=== PATIENT | female | born 1980 | race Caucasian/White ===

== ENCOUNTER 2023-02-01 16:30 | Emergency (ER) | payer MEDICAID ==
[~2023-02-01] VITALS: Ht 162.6 cm; Wt 75.7 kg
[2023-02-01 16:59] VITALS: BP 109/52; PULSE 89; RESP 17; TEMP 97.4; O2SAT 97
[2023-02-01] MEDS ORDERED: KETOROLAC 15 MG/ML VIAL IVP ONE (17:40)
[2023-02-01] MEDS ORDERED: NACL 0.9% 1,000 ML IV ONE (17:40)
--- NOTE | 2023-02-01 17:57 | NUR ---
LOW ABD PAIN, THAT RADIATES TO THE LOWER BACK, ONSET THIS MORNING. DENIES N/V. DOES ENDORSES PRIOR HX OF KIDNEY STONES.
--- NOTE | 2023-02-01 18:03 | NUR ---
Thi callahan in ED - 02/01/23 at 1935 by [id number] Pt has been medicated per providers orders.
[2023-02-01 18:06] LABS: BASOPHILS # (AUTO) 0.1 K/uL (0.00-0.22); BASOPHILS % (AUTO) 0.8 % (0.0-2.0); EOSINOPHILS # (AUTO) 0.3 K/uL (0-0.4); HEMATOCRIT 40.7 % (36-48); HEMOGLOBIN 13.5 g/dL (12.0-16.0); LYMPHOCYTES # (AUTO) 2.7 K/uL (2.5-16.5); LYMPHOCYTES % (AUTO) 21.2 % (20.5-51.1); MEAN CORPUSCULAR HEMOGLOBIN 29 pg (27-31); MEAN CORPUSCULAR HGB CONC 33 g/dL (33-37); MEAN CORPUSCULAR VOLUME 87.4 fL (80-94); MONOCYTES % (AUTO) 7.7 % (1.7-9.3); NEUTROPHILS # (AUTO) 8.8 K/uL (1.8-7.7); NEUTROPHILS % (AUTO) 68.3 % (42.2-75.2); PLATELET COUNT (AUTO) 351 K/uL (140-450); RED BLOOD CELL COUNT(AUTO) 4.65 MIL/uL (4.20-5.40); WHITE BLOOD COUNT (AUTO) 12.9 K/uL (4.8-10.8)
[2023-02-01 18:20] LABS: ALBUMIN 3.5 g/dL (3.4-5.0); CARBON DIOXIDE 28.8 mmol/L (21-32); CREATININE 0.9 mg/dL (0.6-1.3); POTASSIUM 3.8 mmol/L (3.5-5.1); TOTAL BILIRUBIN 0.5 mg/dL (0.0-1.0)
[2023-02-01 18:27] LABS: APPEARANCE,URINE HAZY (CLEAR); BILIRUBIN,URINE NEGATIVE (NEGATIVE); BLOOD, URINE 3+ (NEGATIVE); COLOR,URINE YELLOW (YELLOW); LEUKOCYTE ESTERASE ,URINE NEGATIVE (NEGATIVE); NITRITE, URINE NEGATIVE (NEGATIVE); UGLUCOSE NEGATIVE (NEGATIVE)
--- NOTE | 2023-02-01 18:34 | NUR ---
42 Y/F PATIENT PRESENTS TO ED WITH LOWER BACK PAIN THAT RADIATES TO LOWER BACK. ONSET THIS MORNING. PT STATES SHES HAD THIS PAIN BEFORE. PT HAS A HX OF KIDNEY STONES. DENIES N/V/; SKIN IS PINK/WARM/DRY; AAOX4 WITH EVEN AND STEADY GAIT; LUNGS CLEAR BL; HR EVEN AND REGULAR; PT DENIES ANY FEVER, CP, SOB, OR COUGH AT THIS TIME; PATIENT STATES PAIN OF 10/10 AT THIS TIME; VSS; PATIENT POSITIONED FOR COMFORT; CALL LIGHT WITH IN REACH HOB ELEVATED; BEDRAILS UP X2; BED DOWN. ER MD MADE AWARE OF PT STATUS. PMHX KIDNEY STONES ALLERGIES NKA
[2023-02-01 18:38] LABS: RBC,URINE 0-5 /HPF (0-5); TRICHOMONAS,URINE None Seen /HPF (None Seen); YEAST,URINE None Seen /HPF (None Seen)
--- NOTE | 2023-02-01 19:03 | NUR ---
Pt has been medicated per providers orders
--- NOTE | 2023-02-01 19:29 | NUR ---
Thi callahan in [facility] - 02/01/23 at 1935 by [id number] Report given and Released care to ELIANA Nathan.
--- NOTE | 2023-02-01 19:30 | NUR ---
Report given and Released care to ELIANA Nathan.
--- NOTE | 2023-02-01 19:30 | NUR ---
pt resting on bed. a/ox4. not in distress. chest rise and fall symmetrical. on monitor. oriented to call light and within reach. bed locked to lowest position. siderails x2 for safety. placed on moderate high back rest
[2023-02-01] MEDS ORDERED: ACET-10509 PO (21:25)
[2023-02-01] MEDS ORDERED: DICY10CA14 PO (21:25)
[2023-02-01 21:41] VITALS: BP 110/54; PULSE 69; RESP 17; TEMP 97.4; O2SAT 97
--- NOTE | 2023-02-01 21:41 | NUR ---
Patient discharged with v/s stable. Written and verbal after care instructions given and explained. Patient alert, oriented and verbalized understanding of instructions. Ambulatory with steady gait. All questions addressed prior to discharge. ID band removed. Patient advised to follow up with PMD. Rx given to pt. Patient educated on indication of medication including possible reaction and side effects. Opportunity to ask questions provided and answered.
== END 2023-02-01 21:41 | disposition home or self-care (01) ==
LOC: MED 16:30
DX: R10.84 Generalized abdominal pain (principal); Z79.899 Other long term (current) drug therapy; Z98.890 Other specified postprocedural states
CPT/HCPCS: 36415; 74177; 80053; 81001; 81025; 83690; 85025; 96361; 96374; 99285; J1885; J7030; Q9967

== ENCOUNTER 2023-02-16 01:40 | Emergency (ER) | payer MEDICAID ==
[~2023-02-16] VITALS: Ht 152.4 cm; Wt 72.6 kg
[~2023-02-16 01:40] MED LIST: ACET-10509 PO; DICY-209 PO
[2023-02-16 01:46] VITALS: BP 90/57; PULSE 94; RESP 18; TEMP 98.4; O2SAT 95
[2023-02-16 02:15] VITALS: TEMP 98.4
[2023-02-16] MEDS ORDERED: PHEN1TAB55 PO (02:33)
[2023-02-16] MEDS ORDERED: IBUP-1842 PO (02:33)
[2023-02-16 02:45] VITALS: BP 122/63; PULSE 89; RESP 16; O2SAT 97
[2023-02-16 02:45] LABS: FLU A ANTIGEN negative (NEGATIVE); FLU B ANTIGEN NEGATIVE (NEGATIVE)
== END 2023-02-16 02:45 | disposition home or self-care (01) ==
LOC: MED 01:40
DX: J06.9 Acute upper respiratory infection, unspecified (principal); Z20.822 Contact with and (suspected) exposure to COVID-19; Z79.899 Other long term (current) drug therapy; Z79.1 Long term (current) use of non-steroidal anti-inflammatories (NSAID)
CPT/HCPCS: 99283

== ENCOUNTER 2024-01-16 12:22 | Emergency (ER) | payer MEDICAID, OTHER ==
[~2024-01-16] VITALS: Ht 142.2 cm; Wt 71.7 kg
[~2024-01-16 12:22] MED LIST changes: +IBUP-1842 PO; +PHEN1TAB55 PO
[2024-01-16 12:52] VITALS: BP 109/61; PULSE 73; RESP 14; TEMP 98.2; O2SAT 96
[2024-01-16] MEDS ORDERED: IBUP-2213 PO (13:57)
[2024-01-16] MEDS: KETOROLAC 30 MG/ML VIAL IVP ONE (14:06)
[2024-01-16] MEDS: NACL 0.9% 1,000 ML IV ONE (14:09)
[2024-01-16] MEDS: diphenhydrAMINE 50 MG/ML VIAL IVP ONE ×2 (15:50→16:17)
[2024-01-16] MEDS: METOCLOPRAMIDE 10 MG/2 ML INJ VIAL IVP ONE (15:52)
[2024-01-16] MEDS: ACETAMINOPHEN 325 MG TAB PO ONE (15:53)
[2024-01-16 17:40] VITALS: BP 109/61; PULSE 73; RESP 14; TEMP 98.2; O2SAT 96
== END 2024-01-16 17:40 | disposition home or self-care (01) ==
LOC: MED 12:22
DX: R10.30 Lower abdominal pain, unspecified (principal); R53.1 Weakness; R42 Dizziness and giddiness; Z98.890 Other specified postprocedural states; Z79.899 Other long term (current) drug therapy
CPT/HCPCS: 70450; 81002; 81025; 93005; 96361; 96374; 96375; 99285; J1200; J1885; J2765; J7030